=== PATIENT | female | born 1945 | race Caucasian/White ===

== ENCOUNTER 2017-10-19 11:21 | Emergency (ER) | payer BC ==
[2017-10-19] MEDS: KETOROLAC 15 MG INJ IM (12:08)
[2017-10-19] MEDS: OXYCODONE/ACETAMINOPHEN (5/325) TAB PO (12:09)
== END 2017-10-19 12:14 | disposition home or self-care (01) ==
LOC: E/R 11:21
DX: M54.2 Cervicalgia (principal); I12.0 Hypertensive chronic kidney disease with stage 5 chronic kidney disease or end stage renal disease; N18.6 End stage renal disease; E11.22 Type 2 diabetes mellitus with diabetic chronic kidney disease; I25.10 Atherosclerotic heart disease of native coronary artery without angina pectoris; E66.9 Obesity, unspecified; Z68.36 Body mass index [BMI] 36.0-36.9, adult; Z79.4 Long term (current) use of insulin; Z99.2 Dependence on renal dialysis; Z79.82 Long term (current) use of aspirin
CPT/HCPCS: 96372; 99284-25

== ENCOUNTER 2017-10-21 15:47 | Emergency (ER) | payer BC ==
[2017-10-21] MEDS: KETOROLAC 30 MG INJ IM (17:58)
[2017-10-21] MEDS: morphine 4 MG/ML VIAL IM (17:58)
[2017-10-21] MEDS: METHOCARBAMOL 750 MG TAB PO (18:14)
== END 2017-10-21 20:00 | disposition home or self-care (01) ==
LOC: E/R 20:00
DX: M54.12 Radiculopathy, cervical region (principal); M50.30 Other cervical disc degeneration, unspecified cervical region; M62.838 Other muscle spasm; E66.9 Obesity, unspecified; I10 Essential (primary) hypertension; E11.9 Type 2 diabetes mellitus without complications; Z68.33 Body mass index [BMI] 33.0-33.9, adult; Z79.4 Long term (current) use of insulin; Z79.82 Long term (current) use of aspirin
CPT/HCPCS: 72125; 93005; 96372; 99285-25